=== PATIENT | male | born 1985 | race Two or more races ===

== ENCOUNTER 2017-05-09 19:45 | Emergency (ER) | payer OTHER ==
[2017-05-09 19:53] VITALS: BP 120/94; PULSE 77; RESP 16; TEMP 98.4; O2SAT 97
[2017-05-09] MEDS ORDERED: TDAP ADULT 0.5 ML INJ (BOOSTRIX) IM ONE (19:56)
--- NOTE | 2017-05-09 19:56 | EDPHY ---
H & P Time Seen by Provider: 05/09/17 19:52 HPI/ROS: 31-year-old male presents complaining of cut to right hand while throwing up a trash on a tuna can. Review of systems As per HPI General no fever no chills no weakness HEENT no eye pain no eye discharge. No eye redness, no sore throat Respiratory no cough, no shortness of breath Cardiac no chest pain, no peripheral edema GI no abdominal pain, no diarrhea, no constipation, no nausea, no vomiting no flank pain, no hematuria, no dysuria Musculoskeletal no myalgias, no joint pain Heme no easy bruising, no easy bleeding Endo no polyuria, no polydipsia Skin no rashes, no pruritus Neuro no syncope, no dizziness, no headaches Psych is no suicidal ideation, no homicidal ideation Past Medical/Surgical History: Noncontributory Social History: No alcohol, no drugs Works at 2 different jobs Smoking Status: Never smoked Physical Exam: Alert and oriented in no acute distress nontoxic appearance, afebrile Atraumatic normocephalic Neck no JVD Lungs clear to auscultation, no respiratory distress Heart regular rate and rhythm Extremities no cyanosis clubbing edema Except right hand-2 cm laceration on dorsum of hand overlying the 5th metacarpal distal aspect No joint involvement, no tendon involvement, full range of motion good capillary refill sensation intact Constitutional: Initial Vital Signs Temperature (C) 36.9 C 05/09/17 19:48 Heart Rate 77 05/09/17 19:48 Respiratory Rate 16 05/09/17 19:48 Blood Pressure 120/94 H 05/09/17 19:48 O2 Sat (%) 97 05/09/17 19:48 O2 Delivery Mode Room Air Allergies/Adverse Reactions: No Known Allergies Allergy (Unverified 05/09/17 19:53) Home Medications: Medication Instructions Recorded NK [No Known Home Meds] 05/09/17 Medical Decision Making Procedures: Procedure note-laceration The wound was irrigated with copious amounts of saline. Xylocaine 2% without epi was used for local anesthetic. 4 simple interrupted sutures were placed. 4-0 Ethilon was used. Patient tolerated procedure well. ED Course/Re-evaluation: Patient seen and evaluated for laceration to right hand Impression Right hand laceration, 2 cm with out joint or tendon involvement Sutured-see procedure note Plan Given tetanus immunization Advised to return in 10-12 days for suture removal - Data Points Medications Given: Discontinued Medications Diphtheria/Tetanus/Acell Pertussis (Boostrix) 0.5 ml IM .ONCE ONE Stop: 05/09/17 19:57 Last Admin: 05/09/17 20:00 Dose: 0.5 ml Departure - Departure Disposition: Home, Routine, Self-Care Clinical Impression: Hand laceration Condition: Good Instructions: Care For Your Stitches (ED), Laceration (ED) Additional Instructions: Return in 10-12 days to get stitches out Referrals: NONE *PRIMARY CARE P,. [Primary Care Provider] - As per Instructions Stand Alone Forms: Work Excuse
== END 2017-05-09 20:49 | disposition home or self-care (01) ==
LOC: CED 19:45
DX: S61.411A Laceration without foreign body of right hand, initial encounter (principal); W26.8XXA Contact with other sharp object(s), not elsewhere classified, initial encounter; Z23 Encounter for immunization